=== PATIENT | male | born 1960 | race Caucasian/White ===

== ENCOUNTER 2017-03-21 01:19 | Inpatient (IN) | payer BC ==
[2017-03-18] MEDS: ONDANSETRON HCL INJ/PF 4 MG/2 ML SDV IV PRN (04:19)
--- NOTE | 2017-03-21 02:27 | ER Document Report ---
ED General - General Chief Complaint: Rectal Bleeding Stated Complaint: POSSIBLE RECTAL BLEEDING Time Seen by Provider: 03/21/17 02:12 Notes: Patient is a 56-year-old male who presents with complaint of rectal bleeding. He says he has had 3 very bloody bowel movements today. He is on Plavix. No previous history of colonoscopy. No history of colon cancer. He is on Plavix due to history of coronary bypass that was performed in June of last year at [facility]. She was seen at [facility] earlier today. At that time his blood work is normal and had a CT scan performed which was normal. He was told to follow-up with his primary care doctor to arrange for colonoscopy. After he went home he had more bloody bowel movement and became very dizzy and diaphoretic. He therefore called the ER. He said he felt as if he could not stand up because of dizziness for approximately 15 minutes. - Related Data Allergies/Adverse Reactions: Iodine and Iodide Containing Produc Allergy (Severe, Verified 03/21/17 01:46) Past Medical History - Social History Smoking Status: Unknown if Ever Smoked Frequency of alcohol use: None Drug Abuse: None Family History: Reviewed & Not Pertinent Review of Systems - Review of Systems Notes: My Normal Review Basic REVIEW OF SYSTEMS: CONSTITUTIONAL : Denies fever, chills, or sweats. Denies recent illness. EENT: Denies eye, ear, throat, or mouth pain or symptoms. Denies nasal or sinus congestion. CARDIOVASCULAR: Denies chest pain. RESPIRATORY: Denies cough, cold, or chest congestion. Denies shortness of breath, difficulty breathing, or wheezing. GASTROINTESTINAL: Denies abdominal pain. bloody stool MUSCULOSKELETAL: Denies neck or back pain or joint pain or swelling. SKIN: Denies rash or skin lesions. HEMATOLOGIC : on PLavix NEUROLOGICAL: Denies altered mental status or loss of consciousness. Denies headache. Denies weakness or paralysis or loss of use of either side. Denies problems with gait or speech. Denies sensory or motor loss. PSYCHIATRIC: Denies anxiety or stress or depression. ALL OTHER SYSTEMS REVIEWED AND NEGATIVE. Physical Exam - Notes Notes: General Appearance: Well nourished, alert, cooperative, no acute distress, no obvious discomfort. Vitals: reviewed, See vital signs table. Head: no swelling or tenderness to the head Eyes: PERRL, EOMI, Conjuctiva clear Mouth: No decreasd moisture Lungs: No wheezing, No rales, No rhonci, No accessory muscle use, good air exchange bilaterally. Heart: Normal rate, Regular rythm, No murmur, no rub Abdomen: Normal BS, soft, No rigidity, No abdominal tenderness, No guarding, no rebound, no abdominal masses, no organomegaly Rectal: blood areound anus. no hemorrhoids seen. no fissures seen Extremities: strength 5/5 in all extremities, good pulses in all extremities, no swelling or tenderness in the extremities, no edema. Skin: warm, dry, appropriate color, no rash Neuro: speech clear, oriented x 3, normal affect, responds appropriately to questions. Course - Laboratory Result Diagrams: 03/21/17 02:30 03/21/17 02:30 Laboratory results interpreted by me: 03/21/17 03/21/17 02:30 02:30 RBC 4.10 L Hgb 12.3 L Hct 37.1 L RDW 14.2 H Glucose 159 H - Transfer of Care Notes: 03/21/17 04:14 Patient continues to be vitally stable. Due to the patient's recurrent rectal bleeding as well as being on Plavix I think it is appropriate to admit the patient for further workup and treatment. Patient is agreeable to this. I have spoken with the hospitalist who agrees to admit the patient. Dr. Villatoro is covering today for GI. Dictation of this chart was performed using voice recognition software; therefore, there may be some unintended grammatical errors. Discharge - Discharge Clinical Impression: Gastrointestinal hemorrhage Qualifiers: GI bleed type/associated pathology: unspecified gastrointestinal hemorrhage type Qualified Code(s): K92.2 - Gastrointestinal hemorrhage, unspecified Condition: Stable Disposition: ADMITTED OBSERVATION Admitting Provider: Hospitalist Unit Admitted: Telemetry
[2017-03-21 02:48] LABS: ABSOLUTE BASOPHILS # (AUTO) 0.1 10^3/uL (0.0-0.2); ABSOLUTE EOSINOPHILS # (AUTO) 0.2 10^3/uL (0.0-0.6); ABSOLUTE LYMPHOCYTES (AUTO) 1.5 10^3/uL (0.5-4.7); ABSOLUTE MONOCYTES (AUTO) 0.8 10^3/uL (0.1-1.4); ABSOLUTE NEUT (AUTO) 6.8 10^3/uL (1.7-8.2); BASOPHILS % (AUTO) 0.6 % (0-2); EOSINOPHILS % (AUTO) 2.3 % (0-6); HEMATOCRIT 37.1 % (37.9-51.0); HEMOGLOBIN 12.3 g/dL (13.5-17.0); HGB HCT DIFFERENCE -0.2; LYMPHOCYTES % (AUTO) 15.9 % (13-45); MEAN CORPUSCULAR HEMOGLOBIN 29.9 pg (27.0-33.4); MEAN CORPUSCULAR HGB CONC 33.1 g/dL (32.0-36.0); MEAN CORPUSCULAR VOLUME 91 fl (80-97); MONOCYTES % (AUTO) 8.7 % (3-13); RED CELL DISTRIBUTION WIDTH 14.2 % (11.5-14.0); SEGMENTED NEUTROPHILS % (AUTO) 72.5 % (42-78); WHITE BLOOD COUNT 9.3 10^3/uL (4.0-10.5)
[2017-03-21 02:53] LABS: PROTHROMBIN TIME 14.3 SEC (11.4-15.4)
[2017-03-21 02:54] LABS: PARTIAL THROMBOPLASTIN TIME 29.3 SEC (23.5-35.8)
[2017-03-21 02:57] LABS: ALANINE AMINOTRANSFERASE 36 U/L (21-72); ALBUMIN 3.8 g/dL (3.5-5.0); ALKALINE PHOSPHATASE 49 U/L (38-126); ANION GAP 10 (5-19); ASPARTATE AMINO TRANSFERASE 21 U/L (17-59); BILIRUBIN,DIRECT 0.2 mg/dL (0.0-0.4); BILIRUBIN,TOTAL 0.7 mg/dL (0.2-1.3); BLOOD UREA NITROGEN 19 mg/dL (7-20); CARBON DIOXIDE 23 mmol/L (22-30); CHLORIDE 106 mmol/L (98-107); CREATININE RESULT 0.74 mg/dL (0.52-1.25); GLUCOSE 159 mg/dL (75-110); POTASSIUM 4.5 mmol/L (3.6-5.0); SODIUM 139.1 mmol/L (137-145); TOTAL PROTEIN 6.6 g/dL (6.3-8.2)
[2017-03-21] MEDS ORDERED: ACETAMINOPHEN 325 MG TABLET PO PRN (04:19)
[2017-03-21] MEDS ORDERED: IPRATROPIUM/ALBUTEROL 0.5-2.5 MG/3 ML AMPUL NEB PRN (04:19)
[2017-03-21] MEDS: NORMAL SALINE 1000 ML 1,000 ML IV SCH ×3 (05:18→14:13)
[2017-03-21] MEDS: ONDANSETRON HCL INJ/PF 4 MG/2 ML SDV IV PRN (05:18)
--- NOTE | 2017-03-21 05:21 | PDOC H&P ---
History of Present Illness Admission Date/PCP: 03/21/17 04:19 MIKE WHITT PA-C Patient complains of: Blood per rectum History of Present Illness: AURORA CAVAZOS is a 56 year old male with a past medical history of coronary artery disease status post coronary artery bypass graft 9 months ago, hypertension, dyslipidemia on Plavix. He had been in his usual state of health approximately 24 hours prior to presentation having maroon colored stools and dizziness which prompted him to be evaluated at the emergency room and [place] where he was found to have a hemoglobin of 13.2 and an unremarkable non[address] CT of abdomen and pelvis and discharged home with follow-up with primary care and gastroenterology for colonoscopy. However he has had an additional 4-5 episodes of maroon colored stools associated with dizziness prompting him to be evaluated at the emergency room in [place]. His hemoglobin is found to be 12.3 and is referred to the hospitalist for admission. He denies pain, remote history of bleeding, no change in medications recently or exceptional constipation. Past Medical History Cardiac Medical History: Reports: Coronary Artery Disease, Hyperlipidema, Hypertension Endocrine Medical History: Reports: Diabetes Mellitus Type 2 Past Surgical History Past Surgical History: Reports: Coronary Artery Bypass Graft Social History Information Source: Patient Lives with: Family Smoking Status: Never Smoker Frequency of Alcohol Use: None Hx Recreational Drug Use: No - Advance Directive Resuscitation Status: Full Code Family History Family History: Hypertension. denies: Malignancy Parental Family History Reviewed: Yes Children Family History Reviewed: Yes Sibling(s) Family History Reviewed.: Yes Medication/Allergy Allergies/Adverse Reactions: Iodine and Iodide Containing Produc Allergy (Severe, Verified 03/21/17 01:46) Review of Systems Constitutional: ABSENT: chills, fever(s), headache(s), weight gain, weight loss Eyes: ABSENT: visual disturbances Ears: ABSENT: hearing changes Cardiovascular: ABSENT: chest pain, dyspnea on exertion, edema, orthropnea, palpitations Respiratory: ABSENT: cough, hemoptysis Gastrointestinal: ABSENT: abdominal pain, constipation, diarrhea, hematemesis, hematochezia, nausea, vomiting Genitourinary: ABSENT: dysuria, hematuria Musculoskeletal: ABSENT: joint swelling Integumentary: ABSENT: rash, wounds Neurological: ABSENT: abnormal gait, abnormal speech, confusion, dizziness, focal weakness, syncope Psychiatric: ABSENT: anxiety, depression, homidical ideation, suicidal ideation Endocrine: ABSENT: cold intolerance, heat intolerance, polydipsia, polyuria Hematologic/Lymphatic: ABSENT: easy bleeding, easy bruising Physical Exam General appearance: PRESENT: no acute distress, well-developed, well-nourished Head exam: PRESENT: atraumatic, normocephalic Eye exam: PRESENT: conjunctiva pink, EOMI, PERRLA. ABSENT: scleral icterus Ear exam: PRESENT: normal external ear exam Mouth exam: PRESENT: moist, tongue midline Neck exam: ABSENT: carotid bruit, JVD, lymphadenopathy, thyromegaly Respiratory exam: PRESENT: clear to auscultation marleni. ABSENT: rales, rhonchi, wheezes Cardiovascular exam: PRESENT: RRR. ABSENT: diastolic murmur, rubs, systolic murmur Pulses: PRESENT: normal dorsalis pedis pul Vascular exam: PRESENT: normal capillary refill GI/Abdominal exam: PRESENT: normal bowel sounds, soft. ABSENT: distended, guarding, mass, organolmegaly, rebound, tenderness Rectal exam: PRESENT: deferred Extremities exam: PRESENT: full ROM. ABSENT: calf tenderness, clubbing, pedal edema Neurological exam: PRESENT: alert, awake, oriented to person, oriented to place , oriented to time, oriented to situation, CN II-XII grossly intact. ABSENT: motor sensory deficit Psychiatric exam: PRESENT: appropriate affect, normal mood. ABSENT: homicidal ideation, suicidal ideation Skin exam: PRESENT: dry, intact, warm. ABSENT: cyanosis, rash Assessment & Plan - Diagnosis (1) Anemia Qualifiers: Other causes of anemia: acute posthemorrhagic Is this a current diagnosis for this admission?: YesPlan: Secondary to lower GI bleed suggestive of diverticular bleed given painless maroon colored stools. He will be typed and screened for 2 units of packed red blood cells with serial CBC every 6 hours a clear liquid diet and gastroenterology consultation (2) Light-headedness Is this a current diagnosis for this admission?: YesPlan: Secondary to GI bleed, out of bed with assistance (3) GI bleed Qualifiers: GI bleed type/associated pathology: unspecified gastrointestinal hemorrhage type Qualified Code(s): K92.2 - Gastrointestinal hemorrhage, unspecified Is this a current diagnosis for this admission?: YesPlan: Please see #1, history suggests diverticular bleed, CBC every 6 hours, clear liquid diet and GI consult pending - Time Time Spent: 30 to 50 Minutes - Inpatient Certification Medical Necessity: Need Close Monitoring Due to Risk of Patient Decompensation
[2017-03-21 06:16] LABS: ABSOLUTE EOSINOPHILS # (AUTO) 0.2 10^3/uL (0.0-0.6); ABSOLUTE LYMPHOCYTES (AUTO) 1.5 10^3/uL (0.5-4.7); ABSOLUTE MONOCYTES (AUTO) 0.6 10^3/uL (0.1-1.4); ABSOLUTE NEUT (AUTO) 5.8 10^3/uL (1.7-8.2); BASOPHILS % (AUTO) 0.4 % (0-2); EOSINOPHILS % (AUTO) 2.1 % (0-6); HEMOGLOBIN 10.9 g/dL (13.5-17.0); HGB HCT DIFFERENCE 0.7; LYMPHOCYTES % (AUTO) 18.6 % (13-45); MEAN CORPUSCULAR HEMOGLOBIN 30.3 pg (27.0-33.4); MEAN CORPUSCULAR VOLUME 89 fl (80-97); MONOCYTES % (AUTO) 7.7 % (3-13); RED BLOOD COUNT 3.59 10^6/uL (4.35-5.55); SEGMENTED NEUTROPHILS % (AUTO) 71.2 % (42-78); WHITE BLOOD COUNT 8.1 10^3/uL (4.0-10.5)
--- NOTE | 2017-03-21 09:42 | PDOC CONSULTATION ---
Consultation Consult Date: 03/21/17 Attending physician:: NAEL WHITLOCK Consult reason:: Painless GI bleeding History of Present Illness Admission Date/PCP: 03/21/17 04:19 MIKE WHITT PA-C History of Present Illness: I was asked to see this patient by the hospitalist physician who admitted the patient overnight. Patient is known to my service. He had previously been seen as an outpatient. He was scheduled for a colonoscopy but because he lost his insurance was not able to get it done. He presented initially to another hospital with lower GI bleeding apparently was discharge given the fact that he had a normal hemoglobin. He started to have continuous symptoms presented to this hospital here and had a drop of his hemoglobin. He had further maroon stools not accompanied by any pain and was admitted for presumed diverticular bleeding. He has not had a GI evaluation in the past. He does have a history of coronary artery disease. He is on Plavix. He denies any abdominal pain. His symptoms started with diarrhea which were nonbloody. He denies any recent travel. No previous episodes. There is no nausea or vomiting. His symptoms were accompanied by some dizziness. He was subsequently admitted. He was noted to have a slight drop of his blood count. He will need a GI workup. Patient denies any chest pain or shortness of breath. No previous colonoscopy done. Denies any family history of colon cancer. Otherwise not had any change in his bowel habits. Past Medical History Cardiac Medical History: Reports: Coronary Artery Disease, Hyperlipidema, Hypertension Endocrine Medical History: Reports: Diabetes Mellitus Type 2 Past Surgical History Past Surgical History: Reports: Coronary Artery Bypass Graft Social History Lives with: Family Smoking Status: Never Smoker Frequency of Alcohol Use: None Hx Recreational Drug Use: No Hx Prescription Drug Abuse: No - Advance Directive Resuscitation Status: Full Code Family History Family History: Hypertension. denies: Malignancy Parental Family History Reviewed: Yes Children Family History Reviewed: Unknown Sibling(s) Family History Reviewed.: Unknown Medication/Allergy Home Medications: Aspirin [Aspirin 325 mg Tablet] 325 mg PO DAILY 03/21/17 Atorvastatin Calcium [Lipitor 80 mg Tablet] 80 mg PO DAILY 03/21/17 Cetirizine HCl [Zyrtec 10 mg Tablet] 1 tab PO DAILY 03/21/17 Clopidogrel Bisulfate [Plavix 75 mg Tablet] 75 mg PO DAILY 03/21/17 Metformin HCl [Glucophage] 1,000 mg PO BIDBS 03/21/17 Metoprolol Tartrate [Lopressor 25 mg Tablet] 12.5 mg PO Q12 03/21/17 Allergies/Adverse Reactions: Iodine and Iodide Containing Produc Allergy (Severe, Verified 03/21/17 01:46) Review of Systems Constitutional: ABSENT: fever(s), headache(s), night sweats, weakness Eyes: ABSENT: visual disturbances Ears: ABSENT: hearing changes Nose, Mouth, and Throat: ABSENT: mouth pain, sore throat Cardiovascular: ABSENT: chest pain, edema, orthropnea Respiratory: ABSENT: dyspnea, hemoptysis Gastrointestinal: PRESENT: hematochezia. ABSENT: abdominal pain, diarrhea, dysphagia, nausea, vomiting Genitourinary: ABSENT: dysuria, hematuria Musculoskeletal: ABSENT: deformity, joint swelling Integumentary: ABSENT: lesions, pruritus Neurological: ABSENT: paresthesias, syncope, tingling, tremor(s), vertigo Endocrine: ABSENT: polydipsia, polyphagia, polyuria Hematologic/Lymphatic: ABSENT: easy bruising, lymphadenopathy Physical Exam Vital Signs: Temp Pulse Resp BP Pulse Ox 98.3 F 79 16 110/53 L 97 03/21/17 07:46 03/21/17 08:00 03/21/17 08:00 03/21/17 07:46 03/21/17 08:00 Intake & Output 03/20/17 03/21/17 03/22/17 06:59 06:59 06:59 Weight 94.1 kg General appearance: PRESENT: no acute distress, cooperative, well-developed, well-nourished Head exam: PRESENT: atraumatic, normocephalic Eye exam: PRESENT: EOMI, PERRLA. ABSENT: scleral icterus Mouth exam: PRESENT: moist Throat exam: ABSENT: tonsillar exudate Neck exam: ABSENT: meningismus, tenderness, thyromegaly Respiratory exam: PRESENT: symmetrical, unlabored. ABSENT: tachypnea, wheezes Cardiovascular exam: PRESENT: RRR, +S1, +S2 GI/Abdominal exam: PRESENT: soft. ABSENT: Jose's sign, rebound, rigid, tenderness Extremities exam: PRESENT: full ROM. ABSENT: clubbing, joint swelling Musculoskeletal exam: PRESENT: full ROM Neurological exam: PRESENT: alert, oriented to person, oriented to time, CN II- XII grossly intact. ABSENT: altered Skin exam: PRESENT: normal color. ABSENT: mottled, pallor, petechiae, urticaria , vesicles Results Laboratory Results: 03/21/17 06:04 03/21/17 06:04 WBC 8.1 RBC 3.59 L Hgb 10.9 L Hct 32.0 L MCV 89 MCH 30.3 MCHC 34.0 RDW 14.0 Plt Count 152 Seg Neutrophils % 71.2 Lymphocytes % 18.6 Monocytes % 7.7 Eosinophils % 2.1 Basophils % 0.4 Absolute Neutrophils 5.8 Absolute Lymphocytes 1.5 Absolute Monocytes 0.6 Absolute Eosinophils 0.2 Absolute Basophils 0.0 Assessment & Plan - Diagnosis (1) GI bleed Qualifiers: GI bleed type/associated pathology: unspecified gastrointestinal hemorrhage type Qualified Code(s): K92.2 - Gastrointestinal hemorrhage, unspecified Is this a current diagnosis for this admission?: YesPlan: Presumed lower GI bleeding that may be consistent with diverticulosis. However since patient has not had a GI evaluation and has to remain on high risk medication it would benefit him to undergo colonoscopy to exclude any other reason. The risks, benefits and alternatives of the procedure including risks of bleeding, perforation requiring surgery are explained to the patient detail and informed consent was obtained. He will be on a clear liquid diet today He will start his prep later on this afternoon We will schedule this procedure tomorrow Further recommendations to follow Monitor H&H Transfuse as necessary - Time Time Spent: 50 to 70 Minutes
[2017-03-21 12:03] LABS: ABSOLUTE EOSINOPHILS # (AUTO) 0.1 10^3/uL (0.0-0.6); ABSOLUTE LYMPHOCYTES (AUTO) 1.5 10^3/uL (0.5-4.7); ABSOLUTE MONOCYTES (AUTO) 0.5 10^3/uL (0.1-1.4); ABSOLUTE NEUT (AUTO) 4.3 10^3/uL (1.7-8.2); BASOPHILS % (AUTO) 0.5 % (0-2); EOSINOPHILS % (AUTO) 1.1 % (0-6); HEMATOCRIT 29.6 % (37.9-51.0); HEMOGLOBIN 9.8 g/dL (13.5-17.0); HGB HCT DIFFERENCE -0.2; LYMPHOCYTES % (AUTO) 22.8 % (13-45); MEAN CORPUSCULAR HEMOGLOBIN 29.5 pg (27.0-33.4); MEAN CORPUSCULAR HGB CONC 33.1 g/dL (32.0-36.0); MEAN CORPUSCULAR VOLUME 89 fl (80-97); RED BLOOD COUNT 3.32 10^6/uL (4.35-5.55); RED CELL DISTRIBUTION WIDTH 14.2 % (11.5-14.0); SEGMENTED NEUTROPHILS % (AUTO) 67.6 % (42-78); WHITE BLOOD COUNT 6.4 10^3/uL (4.0-10.5)
--- NOTE | 2017-03-21 12:24 | PDOC PROGRESS REPORT ---
Subjective Progress Note for:: 03/21/17 Subjective:: Denies any complaints Physical Exam Vital Signs: Temp Pulse Resp BP Pulse Ox 98.3 F 80 16 126/60 H 97 03/21/17 11:39 03/21/17 11:39 03/21/17 11:39 03/21/17 11:39 03/21/17 11:39 Intake & Output 03/20/17 03/21/17 03/22/17 06:59 06:59 06:59 Weight 94.1 kg General appearance: PRESENT: no acute distress Eye exam: PRESENT: conjunctiva pink. ABSENT: scleral icterus Ear exam: PRESENT: normal external ear exam Mouth exam: PRESENT: moist, tongue midline Neck exam: ABSENT: carotid bruit, JVD, lymphadenopathy, thyromegaly Respiratory exam: PRESENT: clear to auscultation marleni. ABSENT: rales, rhonchi, wheezes Cardiovascular exam: PRESENT: RRR. ABSENT: diastolic murmur, rubs, systolic murmur GI/Abdominal exam: PRESENT: normal bowel sounds, soft. ABSENT: distended, guarding, mass, organolmegaly, rebound, tenderness Extremities exam: ABSENT: calf tenderness, clubbing, pedal edema Neurological exam: PRESENT: alert, awake, oriented to person, oriented to place , oriented to time, oriented to situation, CN II-XII grossly intact. ABSENT: motor sensory deficit Psychiatric exam: PRESENT: appropriate affect Skin exam: PRESENT: dry, intact, warm. ABSENT: cyanosis, rash Results Laboratory Results: 03/21/17 11:51 03/21/17 03/21/17 06:04 11:51 WBC 8.1 6.4 RBC 3.59 L 3.32 L Hgb 10.9 L 9.8 L Hct 32.0 L 29.6 L MCV 89 89 MCH 30.3 29.5 MCHC 34.0 33.1 RDW 14.0 14.2 H Plt Count 152 142 L Seg Neutrophils % 71.2 67.6 Lymphocytes % 18.6 22.8 Monocytes % 7.7 8.0 Eosinophils % 2.1 1.1 Basophils % 0.4 0.5 Absolute Neutrophils 5.8 4.3 Absolute Lymphocytes 1.5 1.5 Absolute Monocytes 0.6 0.5 Absolute Eosinophils 0.2 0.1 Absolute Basophils 0.0 0.0 Assessment & Plan - Diagnosis (1) GI bleed Qualifiers: GI bleed type/associated pathology: unspecified gastrointestinal hemorrhage type Qualified Code(s): K92.2 - Gastrointestinal hemorrhage, unspecified Is this a current diagnosis for this admission?: YesPlan: Patient has been evaluated by GI the plan is for a colonoscopy tomorrow. We will continue to monitor hemoglobin. (2) Anemia Qualifiers: Other causes of anemia: acute posthemorrhagic Is this a current diagnosis for this admission?: YesPlan: Acute blood loss anemia secondary to GI bleeding. - Time Time Spent with patient: 25-34 minutes - Inpatient Certification Medical Necessity: Need Close Monitoring Due to Risk of Patient Decompensation
[2017-03-21] MEDS ORDERED: PEG 3350/NA SULF,BICARB,CL/KCL 4000 ML PO ONE (15:00)
[2017-03-21 18:43] LABS: ABSOLUTE EOSINOPHILS # (AUTO) 0.1 10^3/uL (0.0-0.6); ABSOLUTE LYMPHOCYTES (AUTO) 2.3 10^3/uL (0.5-4.7); ABSOLUTE MONOCYTES (AUTO) 0.6 10^3/uL (0.1-1.4); ABSOLUTE NEUT (AUTO) 2.9 10^3/uL (1.7-8.2); BASOPHILS % (AUTO) 0.5 % (0-2); EOSINOPHILS % (AUTO) 2.3 % (0-6); HEMATOCRIT 28.3 % (37.9-51.0); HEMOGLOBIN 9.6 g/dL (13.5-17.0); HGB HCT DIFFERENCE 0.5; LYMPHOCYTES % (AUTO) 38.1 % (13-45); MEAN CORPUSCULAR HEMOGLOBIN 30.1 pg (27.0-33.4); MEAN CORPUSCULAR HGB CONC 33.8 g/dL (32.0-36.0); MEAN CORPUSCULAR VOLUME 89 fl (80-97); MONOCYTES % (AUTO) 10.5 % (3-13); RED BLOOD COUNT 3.17 10^6/uL (4.35-5.55); RED CELL DISTRIBUTION WIDTH 14.2 % (11.5-14.0); SEGMENTED NEUTROPHILS % (AUTO) 48.6 % (42-78)
[2017-03-21] MEDS: METOPROLOL TARTRATE 25 MG TABLET PO SCH (21:57)
[2017-03-22 00:25] LABS: ABSOLUTE EOSINOPHILS # (AUTO) 0.2 10^3/uL (0.0-0.6); ABSOLUTE LYMPHOCYTES (AUTO) 2.8 10^3/uL (0.5-4.7); ABSOLUTE MONOCYTES (AUTO) 0.7 10^3/uL (0.1-1.4); ABSOLUTE NEUT (AUTO) 2.4 10^3/uL (1.7-8.2); BASOPHILS % (AUTO) 0.6 % (0-2); EOSINOPHILS % (AUTO) 3.5 % (0-6); HEMATOCRIT 25.9 % (37.9-51.0); HEMOGLOBIN 8.7 g/dL (13.5-17.0); HGB HCT DIFFERENCE 0.2; LYMPHOCYTES % (AUTO) 45.5 % (13-45); MEAN CORPUSCULAR HEMOGLOBIN 30.1 pg (27.0-33.4); MEAN CORPUSCULAR HGB CONC 33.6 g/dL (32.0-36.0); MEAN CORPUSCULAR VOLUME 90 fl (80-97); RED BLOOD COUNT 2.89 10^6/uL (4.35-5.55); SEGMENTED NEUTROPHILS % (AUTO) 39.4 % (42-78); WHITE BLOOD COUNT 6.1 10^3/uL (4.0-10.5)
[2017-03-22 06:48] LABS: ABSOLUTE EOSINOPHILS # (AUTO) 0.3 10^3/uL (0.0-0.6); ABSOLUTE LYMPHOCYTES (AUTO) 2.3 10^3/uL (0.5-4.7); ABSOLUTE MONOCYTES (AUTO) 0.6 10^3/uL (0.1-1.4); ABSOLUTE NEUT (AUTO) 2.2 10^3/uL (1.7-8.2); BASOPHILS % (AUTO) 0.4 % (0-2); EOSINOPHILS % (AUTO) 4.9 % (0-6); HEMOGLOBIN 8.7 g/dL (13.5-17.0); HGB HCT DIFFERENCE 0.1; LYMPHOCYTES % (AUTO) 42.8 % (13-45); MEAN CORPUSCULAR HEMOGLOBIN 30.2 pg (27.0-33.4); MEAN CORPUSCULAR HGB CONC 33.5 g/dL (32.0-36.0); MEAN CORPUSCULAR VOLUME 90 fl (80-97); MONOCYTES % (AUTO) 11.4 % (3-13); RED BLOOD COUNT 2.89 10^6/uL (4.35-5.55); RED CELL DISTRIBUTION WIDTH 14.3 % (11.5-14.0); SEGMENTED NEUTROPHILS % (AUTO) 40.5 % (42-78); WHITE BLOOD COUNT 5.3 10^3/uL (4.0-10.5)
[2017-03-22 07:01] LABS: ANION GAP 8 (5-19); BLOOD UREA NITROGEN 8 mg/dL (7-20); CALCIUM 8.7 mg/dL (8.4-10.2); CARBON DIOXIDE 24 mmol/L (22-30); CHLORIDE 110 mmol/L (98-107); CREATININE RESULT 0.64 mg/dL (0.52-1.25); GLUCOSE 152 mg/dL (75-110); POTASSIUM 4.1 mmol/L (3.6-5.0)
[2017-03-22] MEDS ORDERED: DEXTROSE 40% GEL 15 GM TUBE PO PRN ×2 (08:38)
[2017-03-22] MEDS ORDERED: INSULIN REG, HUMAN 100 UNIT/ML 3 ML VIAL (PYX) SUBCUT PRN (08:38)
[2017-03-22] MEDS ORDERED: GLUCAGON,HUMAN RECOMB 1 MG INJ IM PRN (08:38)
[2017-03-22] MEDS ORDERED: DEXTROSE 50%-WATER 25 GM/50 ML DISP.SYRIN IV PRN ×2 (08:38)
[2017-03-22] MEDS ORDERED: ATORVASTATIN CALCIUM 80 MG TABLET PO SCH (10:00)
[2017-03-22] MEDS ORDERED: ONDANSETRON HCL INJ/PF 4 MG/2 ML SDV IV PRN (10:06)
[2017-03-22 12:16] LABS: ABSOLUTE BASOPHILS # (AUTO) 0.1 10^3/uL (0.0-0.2); ABSOLUTE EOSINOPHILS # (AUTO) 0.2 10^3/uL (0.0-0.6); ABSOLUTE LYMPHOCYTES (AUTO) 1.8 10^3/uL (0.5-4.7); ABSOLUTE MONOCYTES (AUTO) 0.6 10^3/uL (0.1-1.4); ABSOLUTE NEUT (AUTO) 3.3 10^3/uL (1.7-8.2); BASOPHILS % (AUTO) 0.8 % (0-2); EOSINOPHILS % (AUTO) 3.9 % (0-6); LYMPHOCYTES % (AUTO) 29.9 % (13-45); MEAN CORPUSCULAR HEMOGLOBIN 30.1 pg (27.0-33.4); MEAN CORPUSCULAR HGB CONC 33.5 g/dL (32.0-36.0); MEAN CORPUSCULAR VOLUME 90 fl (80-97); MONOCYTES % (AUTO) 9.3 % (3-13); RED CELL DISTRIBUTION WIDTH 14.5 % (11.5-14.0); SEGMENTED NEUTROPHILS % (AUTO) 56.1 % (42-78); WHITE BLOOD COUNT 5.9 10^3/uL (4.0-10.5)
--- NOTE | 2017-03-22 12:31 | PDOC PROGRESS REPORT ---
Subjective Progress Note for:: 03/22/17 Subjective:: Denies any complaints Physical Exam Vital Signs: Temp Pulse Resp BP Pulse Ox 98.1 F 81 18 152/65 H 100 03/22/17 12:11 03/22/17 12:11 03/22/17 12:11 03/22/17 12:11 03/22/17 12:11 Intake & Output 03/21/17 03/22/17 03/23/17 06:59 06:59 06:59 Intake Total 4950 Balance 4950 Weight 94.1 kg 93.7 kg General appearance: PRESENT: no acute distress Eye exam: PRESENT: conjunctiva pink. ABSENT: scleral icterus Mouth exam: PRESENT: moist, tongue midline Neck exam: ABSENT: JVD Respiratory exam: PRESENT: clear to auscultation marleni. ABSENT: rales, rhonchi, wheezes Cardiovascular exam: PRESENT: RRR. ABSENT: diastolic murmur, rubs, systolic murmur Pulses: PRESENT: normal dorsalis pedis pul GI/Abdominal exam: PRESENT: normal bowel sounds, soft. ABSENT: distended, guarding, mass, organolmegaly, rebound, tenderness Extremities exam: ABSENT: calf tenderness, clubbing, pedal edema Neurological exam: PRESENT: alert, awake, oriented to person, oriented to place , oriented to time, oriented to situation, CN II-XII grossly intact. ABSENT: motor sensory deficit Psychiatric exam: PRESENT: appropriate affect Skin exam: PRESENT: dry, intact, warm. ABSENT: cyanosis, rash Results Laboratory Results: 03/22/17 12:06 03/22/17 06:23 03/21/17 03/22/17 03/22/17 18:15 00:15 06:23 WBC 6.0 6.1 5.3 RBC 3.17 L 2.89 L 2.89 L Hgb 9.6 L 8.7 L 8.7 L Hct 28.3 L 25.9 L 26.0 L MCV 89 90 90 MCH 30.1 30.1 30.2 MCHC 33.8 33.6 33.5 RDW 14.2 H 14.0 14.3 H Plt Count 140 L 130 L 138 L Seg Neutrophils % 48.6 39.4 L 40.5 L Lymphocytes % 38.1 45.5 H 42.8 Monocytes % 10.5 11.0 11.4 Eosinophils % 2.3 3.5 4.9 Basophils % 0.5 0.6 0.4 Absolute Neutrophils 2.9 2.4 2.2 Absolute Lymphocytes 2.3 2.8 2.3 Absolute Monocytes 0.6 0.7 0.6 Absolute Eosinophils 0.1 0.2 0.3 Absolute Basophils 0.0 0.0 0.0 Sodium Potassium Chloride Carbon Dioxide Anion Gap BUN Creatinine Est GFR ( Amer) Est GFR (Non-Af Amer) Glucose Calcium 03/22/17 03/22/17 06:23 12:06 WBC 5.9 RBC 3.00 L Hgb 9.0 L Hct 27.0 L MCV 90 MCH 30.1 MCHC 33.5 RDW 14.5 H Plt Count 142 L Seg Neutrophils % 56.1 Lymphocytes % 29.9 Monocytes % 9.3 Eosinophils % 3.9 Basophils % 0.8 Absolute Neutrophils 3.3 Absolute Lymphocytes 1.8 Absolute Monocytes 0.6 Absolute Eosinophils 0.2 Absolute Basophils 0.1 Sodium 142.0 Potassium 4.1 Chloride 110 H Carbon Dioxide 24 Anion Gap 8 BUN 8 Creatinine 0.64 Est GFR ( Amer) > 60 Est GFR (Non-Af Amer) > 60 Glucose 152 H Calcium 8.7 Assessment & Plan - Diagnosis (1) GI bleed Qualifiers: GI bleed type/associated pathology: unspecified gastrointestinal hemorrhage type Qualified Code(s): K92.2 - Gastrointestinal hemorrhage, unspecified Is this a current diagnosis for this admission?: YesPlan: Patient has been evaluated by GI and will get a colonoscopy today. We will continue to monitor hemoglobin. (2) Anemia Qualifiers: Other causes of anemia: acute posthemorrhagic Is this a current diagnosis for this admission?: YesPlan: Acute blood loss anemia secondary to GI bleeding. - Time Time Spent with patient: 25-34 minutes - Inpatient Certification Medical Necessity: Need Close Monitoring Due to Risk of Patient Decompensation
[2017-03-22] MEDS ORDERED: DIPHENHYDRAMINE HCL 50 MG/ML VIAL ONE (12:37)
[2017-03-22] MEDS ORDERED: NALOXONE HCL INJ/PF 0.4 MG/1 ML SDV ONE (12:37)
[2017-03-22] MEDS ORDERED: ONDANSETRON HCL INJ/PF 4 MG/2 ML SDV ONE (12:37)
[2017-03-22] MEDS ORDERED: GLUCAGON,HUMAN RECOMB 1 MG INJ ONE (12:38)
[2017-03-22] MEDS ORDERED: FLUMAZENIL INJ 0.5 MG/5 ML VIAL IV ONE (12:38)
[2017-03-22] MEDS ORDERED: EPINEPHRINE INJ 1 MG/10 ML DISP.SYRIN ONE (12:38)
[2017-03-22] MEDS ORDERED: FENTANYL CITRATE INJ/PF 100 MCG/2 ML AMPUL ONE (12:38)
[2017-03-22] MEDS: MIDAZOLAM 2 MG/2 ML INJ ONE ×3 (13:06→13:15)
--- NOTE | 2017-03-22 14:41 | Operative Report ---
Operative Report DATE OF SURGERY: 03/22/17 Operative Report: The risks, benefits and alternatives of the procedure including risks of bleeding, perforation requiring surgery are explained to the patient detail and informed consent was obtained. Patient was taken back to the endoscopy suite and placed in the left, lateral decubital position. Timeout was called. Conscious sedation medications are provided. A rectal examination was done which did not reveal any masses, tears or fissures. An Olympus video scope was inserted into the patient's rectum. The scope was then carefully guided all the way to the cecum. The cecum was identified by the usual anatomical landmarks including the ileocecal valve as well as the appendiceal office. Photodocumentation is obtained. The scope was then sequentially pulled back via the rest segments of the colon including the ascending colon, hepatic flexure, transverse colon, splenic flexure, descending colon and finding to the rectosigmoid portions of the colon. Retroflexion maneuver was performed. This a prolonged procedure. >60min. PREOPERATIVE DIAGNOSIS: GI bleeding POSTOPERATIVE DIAGNOSIS: No evidence of diverticulosis. Mild internal hemorrhoids. 4 polyps noted. To a particularly large and pedunculated lying [id number] by the opposite ends, snare polypectomy was used to remove all polyps. 2 small polyps are noted in the more proximal part of the colon and these are removed via snare polypectomy. OPERATION: Colonoscopy with snare polypectomy. Prolonged procedure greater than 60 minutes SURGEON: NAEL WHITLOCK ANESTHESIA: Moderate Sedation - 6 mg of Versed, 100 mcg of fentanyl. Conscious sedation monitoring time 30 minutes. TISSUE REMOVED OR ALTERED: All the polyps removed and retrieved COMPLICATIONS: None. ESTIMATED BLOOD LOSS: None. INTRAOPERATIVE FINDINGS: As described above. PROCEDURE: Patient tolerated the procedure well. No immediate postprocedure complications are noted. Patient sent back to his room in good condition. Clear liquid diet. Resume previous activity level. We will wait on pathology results. We will need colon surveillance in 1 year. Follow H&H. Likely can restart his anticoagulation.
[2017-03-22] MEDS: METOPROLOL TARTRATE 25 MG TABLET PO SCH ×2 (16:46→22:11)
[2017-03-22] MEDS: CETIRIZINE 10 MG TABLET PO SCH (17:13)
[2017-03-23 06:44] LABS: ABSOLUTE EOSINOPHILS # (AUTO) 0.3 10^3/uL (0.0-0.6); ABSOLUTE MONOCYTES (AUTO) 0.7 10^3/uL (0.1-1.4); ABSOLUTE NEUT (AUTO) 4.4 10^3/uL (1.7-8.2); BASOPHILS % (AUTO) 0.4 % (0-2); EOSINOPHILS % (AUTO) 4.4 % (0-6); HEMATOCRIT 27.3 % (37.9-51.0); HEMOGLOBIN 9.1 g/dL (13.5-17.0); LYMPHOCYTES % (AUTO) 26.6 % (13-45); MEAN CORPUSCULAR HEMOGLOBIN 30.2 pg (27.0-33.4); MEAN CORPUSCULAR HGB CONC 33.5 g/dL (32.0-36.0); MEAN CORPUSCULAR VOLUME 90 fl (80-97); MONOCYTES % (AUTO) 9.4 % (3-13); RED BLOOD COUNT 3.03 10^6/uL (4.35-5.55); RED CELL DISTRIBUTION WIDTH 14.2 % (11.5-14.0); SEGMENTED NEUTROPHILS % (AUTO) 59.2 % (42-78); WHITE BLOOD COUNT 7.4 10^3/uL (4.0-10.5)
[2017-03-23 06:56] LABS: ANION GAP 7 (5-19); BLOOD UREA NITROGEN 6 mg/dL (7-20); CALCIUM 9.4 mg/dL (8.4-10.2); CARBON DIOXIDE 25 mmol/L (22-30); CHLORIDE 108 mmol/L (98-107); CREATININE RESULT 0.72 mg/dL (0.52-1.25); GLUCOSE 152 mg/dL (75-110); POTASSIUM 4.1 mmol/L (3.6-5.0); SODIUM 140.1 mmol/L (137-145)
--- NOTE | 2017-03-23 08:28 | PDOC PROGRESS REPORT ---
Subjective Progress Note for:: 03/23/17 Subjective:: Patient underwent colonoscopy yesterday. He tolerated the procedure well. No postprocedure complications are noted. He had several polyps that were removed. 2 of them were fairly large and pedunculated. They were removed via snare polypectomy and the base of the polyp was secured with Endo Clip placement. Overnight he has done well, no further bleeding, hemoglobin has gone up. He feels well, there is no chest pain or shortness of breath, is tolerating clear liquid diet. He can likely be advanced. Issue now is with his Plavix. He likely needs to be off of it for at least 2-3 weeks. He is followed by a outpatient pharmacy manager in [place]. I can see him back in follow-up in 1-2 weeks. He will need a surveillance colonoscopy next year. Physical Exam Vital Signs: Temp Pulse Resp BP Pulse Ox 98.2 F 61 17 123/51 L 99 03/23/17 07:11 03/23/17 07:11 03/23/17 07:11 03/23/17 07:11 03/23/17 07:11 Intake & Output 03/22/17 03/23/17 03/24/17 06:59 06:59 06:59 Intake Total 4950 2985 Output Total 1000 Balance 4950 1985 Weight 93.7 kg 94.2 kg General appearance: PRESENT: no acute distress, well-developed, well-nourished Head exam: PRESENT: atraumatic, normocephalic Eye exam: PRESENT: EOMI, PERRLA. ABSENT: scleral icterus Mouth exam: PRESENT: moist Throat exam: ABSENT: tonsillar exudate, tonsillogmegaly Neck exam: ABSENT: meningismus, tenderness, thyromegaly Respiratory exam: PRESENT: clear to auscultation marleni, symmetrical, unlabored. ABSENT: accessory muscle use Cardiovascular exam: PRESENT: RRR, +S1, +S2 GI/Abdominal exam: PRESENT: normal bowel sounds, soft. ABSENT: tenderness Gentrourinary exam: ABSENT: lesions Extremities exam: ABSENT: joint swelling Musculoskeletal exam: PRESENT: full ROM Neurological exam: PRESENT: alert, altered, oriented to time, oriented to situation, CN II-XII grossly intact Psychiatric exam: PRESENT: appropriate affect Skin exam: PRESENT: normal color. ABSENT: mottled, pallor, petechiae, urticaria , vesicles Results Laboratory Results: 03/23/17 06:19 03/23/17 06:19 03/22/17 03/23/17 03/23/17 12:06 06:19 06:19 WBC 5.9 7.4 RBC 3.00 L 3.03 L Hgb 9.0 L 9.1 L Hct 27.0 L 27.3 L MCV 90 90 MCH 30.1 30.2 MCHC 33.5 33.5 RDW 14.5 H 14.2 H Plt Count 142 L 143 L Seg Neutrophils % 56.1 59.2 Lymphocytes % 29.9 26.6 Monocytes % 9.3 9.4 Eosinophils % 3.9 4.4 Basophils % 0.8 0.4 Absolute Neutrophils 3.3 4.4 Absolute Lymphocytes 1.8 2.0 Absolute Monocytes 0.6 0.7 Absolute Eosinophils 0.2 0.3 Absolute Basophils 0.1 0.0 Sodium 140.1 Potassium 4.1 Chloride 108 H Carbon Dioxide 25 Anion Gap 7 BUN 6 L Creatinine 0.72 Est GFR ( Amer) > 60 Est GFR (Non-Af Amer) > 60 Glucose 152 H Calcium 9.4 Assessment & Plan - Diagnosis (1) GI bleed Qualifiers: GI bleed type/associated pathology: unspecified gastrointestinal hemorrhage type Qualified Code(s): K92.2 - Gastrointestinal hemorrhage, unspecified Is this a current diagnosis for this admission?: Yes (2) Colon polyps Plan: We will await pathology on the polyps. Endoclips placed at the base of the polyp to reduce risk of post polypectomy bleeding. No diverticulosis noted. We will need surveillance in 1 year. Can resume polyps in about 3 weeks. Outpatient follow-up Should be able to be discharged and no other further issues Spoke with Dr. Powell. - Time Time Spent with patient: 15-24 minutes
[2017-03-23] MEDS: CETIRIZINE 10 MG TABLET PO SCH (09:33)
[2017-03-23] MEDS: METOPROLOL TARTRATE 25 MG TABLET PO SCH (09:33)
[2017-03-23 10:36] VITALS: BP 132/56
--- NOTE | 2017-03-23 10:55 | PDOC DISCHARGE SUMMARY ---
General - Admit/Disc Date/PCP Admission Date/Primary Care Provider: 03/21/17 04:19 MIKE WHITT PA-C Discharge Date: 03/23/17 - Discharge Diagnosis (1) GI bleed Is this a current diagnosis for this admission?: YesSummary: Secondary to a colon polyp. Patient had endoclips placed by gastroenterology (2) Anemia Is this a current diagnosis for this admission?: Yes (3) Coronary artery disease Is this a current diagnosis for this admission?: Yes (4) Hyperlipidemia Is this a current diagnosis for this admission?: Yes (5) Hypertension Is this a current diagnosis for this admission?: Yes (6) Diabetes mellitus Is this a current diagnosis for this admission?: Yes - Additional Information Resuscitation Status: Full Code Discharge Diet: Cardiac, Diabetic Discharge Activity: Activity As Tolerated Home Medications: Atorvastatin Calcium [Lipitor 80 mg Tablet] 80 mg PO DAILY 03/21/17 Cetirizine HCl [Zyrtec 10 mg Tablet] 1 tab PO DAILY 03/21/17 Metformin HCl [Glucophage] 1,000 mg PO BIDBS 03/21/17 Metoprolol Tartrate [Lopressor 25 mg Tablet] 12.5 mg PO Q12 03/21/17 History of Present Illness History of Present Illness: AURORA CAVAZOS is a 56 year old male with coronary artery disease who is on both aspirin and Plavix who presented with maroon colored stools. Patient had these for approximately 24 hours prior to presentation. He was found initially to have a hemoglobin 13.2 at the emergency room and [place] and was sent home. Patient did however have a CT scan of his abdomen that was unremarkable. Patient had more episodes of maroon colored stool in the presented to our emergency room here. Patient's hemoglobin was found to have decreased from 13.2 down to 12.3 and admitted for further evaluation. Hospital Course Hospital Course: 56-year-old gentleman who has a history of coronary artery disease and has been on aspirin and Plavix who presented with a GI bleed. Patient had maroon colored stool. Patient's initial hemoglobin was 13 when he presented to an outside emergency room and sent home. His hemoglobin when he presented to our emergency room was 12 and decreased down to as low as 8.7. The patient was evaluated by gastroenterology who performed a colonoscopy. Patient was found to have a polyp that was the source of the bleeding and underwent an Endo Clip placement. His aspirin and Plavix were stopped and we will leave him off those for the next 2 weeks. Patient will follow up with his smoking pipe repairer in 2 weeks as well as Dr. Villatoro. The patient did not have any chest pain associated with this. He had no complications with his other medical problems during his hospitalization. His hemoglobin remained stable and actually was increasing and was felt he was stable for discharge. Physical Exam Vital Signs: Temp Pulse Resp BP Pulse Ox 98.2 F 82 17 132/56 H 98 03/23/17 10:34 03/23/17 10:34 03/23/17 10:34 03/23/17 10:34 03/23/17 10:34 Intake & Output 03/22/17 03/23/17 03/24/17 06:59 06:59 06:59 Intake Total 4950 2985 Output Total 1000 Balance 4950 1985 Weight 93.7 kg 94.2 kg General appearance: PRESENT: no acute distress Eye exam: PRESENT: conjunctiva pink, EOMI, PERRLA. ABSENT: scleral icterus Mouth exam: PRESENT: moist, tongue midline Neck exam: ABSENT: JVD Respiratory exam: PRESENT: clear to auscultation marleni. ABSENT: rales, rhonchi, wheezes Cardiovascular exam: PRESENT: RRR. ABSENT: diastolic murmur, rubs, systolic murmur GI/Abdominal exam: PRESENT: normal bowel sounds, soft. ABSENT: distended, guarding, mass, organolmegaly, rebound, tenderness Extremities exam: ABSENT: calf tenderness, clubbing, pedal edema Neurological exam: PRESENT: alert, awake, oriented to person, oriented to place , oriented to time, oriented to situation, CN II-XII grossly intact. ABSENT: motor sensory deficit Psychiatric exam: PRESENT: appropriate affect Skin exam: PRESENT: dry, intact, warm. ABSENT: cyanosis, rash Results Laboratory Results: 03/23/17 06:19 03/23/17 06:19 03/22/17 03/23/17 03/23/17 12:06 06:19 06:19 WBC 5.9 7.4 RBC 3.00 L 3.03 L Hgb 9.0 L 9.1 L Hct 27.0 L 27.3 L MCV 90 90 MCH 30.1 30.2 MCHC 33.5 33.5 RDW 14.5 H 14.2 H Plt Count 142 L 143 L Seg Neutrophils % 56.1 59.2 Lymphocytes % 29.9 26.6 Monocytes % 9.3 9.4 Eosinophils % 3.9 4.4 Basophils % 0.8 0.4 Absolute Neutrophils 3.3 4.4 Absolute Lymphocytes 1.8 2.0 Absolute Monocytes 0.6 0.7 Absolute Eosinophils 0.2 0.3 Absolute Basophils 0.1 0.0 Sodium 140.1 Potassium 4.1 Chloride 108 H Carbon Dioxide 25 Anion Gap 7 BUN 6 L Creatinine 0.72 Est GFR ( Amer) > 60 Est GFR (Non-Af Amer) > 60 Glucose 152 H Calcium 9.4 Qualifiers [place]INT BEING DISCHARGED WITH ANY OF THE FOLLOWING DIAGNOSIS?: No Plan Discharge Plan: Follow-up with his primary care doctor 2 weeks. Follow up with gastroenterology in 2 weeks. Follow-up with cardiology in 2 weeks. Time Spent: Greater than 30 Minutes
--- NOTE | 2017-05-30 09:17 | Operative Report ---
Operative Report DATE OF SURGERY: 03/22/17 Operative Report: The risks benefits and alternatives of the procedure explained to the patient in detail and informed consent is obtained.A GIF Olympus video scope was inserted into the patient's mouth and hypopharynx ,the esophagus is identified intubated and insufflated, the scope was then advanced through the esophagus stomach and duodenum, retroflexion maneuver is done, the esophagus stomach and first and second portions of the duodenum examined PREOPERATIVE DIAGNOSIS: GI bleeding POSTOPERATIVE DIAGNOSIS: Gastritis status post biopsy rule out Helicobacter pylori OPERATION: EGD with biopsy SURGEON: NAEL WHITOLCK ANESTHESIA: Moderate Sedation - 6 mg of Versed, 100 mcg of fentanyl. Conscious sedation monitoring time 30 minutes. TISSUE REMOVED OR ALTERED: Gastric mucosal specimen obtained to rule out Helicobacter pylori COMPLICATIONS: None. ESTIMATED BLOOD LOSS: None. INTRAOPERATIVE FINDINGS: As described above. PROCEDURE: Patient tolerated procedure well. No immediate postprocedure complications are noted. Patient discharged in good condition. Discharge date 03/22/2017. Discharge diet: Regular. Discharge activity: Regular. Follow-up as noted
== END 2017-03-23 10:58 | disposition home or self-care (01) | DRG 378 ==
LOC: ER 01:19 → EH 04:19 → 5 06:32
PROVIDERS: ADMIT Internal Medicine; ATTEND Internal Medicine
PROC: 0DBE8ZZ Excision of Large Intestine, Via Natural or Artificial Opening Endoscopic (ICD-10-PCS; principal; 2017-03-22 13:00)
PROC: 0DB68ZX Excision of Stomach, Via Natural or Artificial Opening Endoscopic, Diagnostic (ICD-10-PCS; 2017-03-22 13:00)
DX: K92.2 Gastrointestinal hemorrhage, unspecified (principal); D62 Acute posthemorrhagic anemia; K63.5 Polyp of colon; K29.70 Gastritis, unspecified, without bleeding; I25.10 Atherosclerotic heart disease of native coronary artery without angina pectoris; E78.5 Hyperlipidemia, unspecified; I10 Essential (primary) hypertension; E11.9 Type 2 diabetes mellitus without complications; Z79.01 Long term (current) use of anticoagulants; Z79.84 Long term (current) use of oral hypoglycemic drugs; Z79.82 Long term (current) use of aspirin; Z79.899 Other long term (current) drug therapy; Z95.1 Presence of aortocoronary bypass graft
CPT/HCPCS: 36415; 43239; 45385; 80048; 80053; 82962; 85025; 85610; 85730; 86850; 86900; 86901; 88305; 88342; 96361; 96374; 99284; J0171; J1200; J1610; J2250; J2310; J2405; J3010; J3490; J7030